=== PATIENT | female | born 1930 | race Asian ===

== ENCOUNTER 2020-11-03 16:44 | Inpatient (IN) | payer MEDICARE, OTHER ==
[~2020-11-03] VITALS: Ht 152.4 cm; Wt 34.9 kg
[2020-11-03] MEDS ORDERED: TEMAZEPAM 7.5 MG CAPSULE PO PRN (17:00)
[2020-11-03] MEDS ORDERED: MAGNESIUM HYDROXIDE 30 ML UDC PO PRN (17:00)
[2020-11-03] MEDS ORDERED: ACETAMINOPHEN 325 MG TABLET PO PRN (17:00)
[2020-11-03] MEDS ORDERED: LORAZEPAM 0.5 MG TABLET PO PRN (17:00)
[2020-11-03] MEDS ORDERED: MAG HYDROX/AL HYDROX/SIMETH 30 ML UDC PO PRN (17:00)
[2020-11-03] MEDS ORDERED: ATOR10TA PO (17:18)
[2020-11-03] MEDS ORDERED: CHOL200013 PO (17:18)
[2020-11-03] MEDS ORDERED: ROMO210S SQ (17:18)
[2020-11-03] MEDS ORDERED: LINA290C PO (17:18)
[2020-11-03] MEDS ORDERED: MEMA7CAP PO (17:18)
[2020-11-03] MEDS ORDERED: GABA-532 PO (17:18)
[2020-11-03] MEDS ORDERED: CALC500T53 PO (17:18)
[2020-11-03] MEDS ORDERED: ICOS1CAP PO (17:18)
[2020-11-03] MEDS ORDERED: NEBI5TAB8 PO (17:18)
[2020-11-03] MEDS ORDERED: MELO-107 PO (17:18)
[2020-11-03] MEDS ORDERED: OLME20TA13 PO (17:18)
[2020-11-03] MEDS ORDERED: AMLO5TAB4 PO (17:18)
[2020-11-03] MEDS ORDERED: MONT10TA22 PO (17:18)
[2020-11-03] MEDS ORDERED: ASCO500C17 PO (17:18)
--- NOTE | 2020-11-03 19:30 | NUR ---
GPS ADMISSION NOTE, RECEIVED PATIENT FROM [facility] [place] . PATIENT ARRIVED ON THIS UNIT AT 1800 VIA STRETCHER WITH 2 EMT ESCORTS. PATIENT ADMITTED ON A 5150 HOLD FOR DTS AND GD. PER HOLD PATIENT IS ALERT AND ORIENTED X 2, IS CONFUSED, AND UNABLE TO RESPOND TO PROMPTS. PATIENT OVERDOSED ON MEDICATION AT HOME AND WAS IN THE HOSPITAL FOR 10 DAYS. PATIENT IS UNABLE TO PROVIDE A VIABLE PLAN FOR SELF CARE AT THIS TIME. THE 5150 WAS REVIEWED AND THE DOCUMENTATION IN THE 5150 HOLD APPEARS TO REFLECT THE PRESENTATION OF THE PATIENT. UPON FACE TO FACE ASSESSMENT PATIENT IS NOTED TO BEING DEPRESSED, DISHEVELED, DISORGANIZED, CONFUSED, COOPERATIVE, AND NEEDS REDIRECTION. PATIENT IS CURRENTLY LYING IN BED AWAKE, HAS NO S/S OR COMPLAINTS OF PAIN. PATIENT IS DISPLAYING NO S/S OF APPARENT DISTRESS. PATIENT BREATHING IS UNLABORED WITH EQUAL RISE AND FALL OF THE CHEST. PATIENT IS ALERT AND ORIENTATED X 1 ON ROOM AIR. PATIENT ASSISTED WITH TURING AND REPOSITIONING Q2HR AND PRN FOR COMFORT AND CIRCULATION. PATIENT HAS NO NEEDS AT THIS TIME. PATIENT DENIES SUICIDE IDEATIONS AND HOMICIDAL IDEATIONS AT THIS TIME. PATIENT REFUSED TO SIGNS ANY PAPER WORK DUE TO HER CONFUSION. PATIENT ADVISED OF HER HOLD AND PATIENT RIGHTS BOOKLET GIVEN. PATIENT IS UNDER THE PSYCHIATRIC CARE OF DR. BILL AND THE MEDICAL CARE OF DR LEGGETT. PATIENT BELONGINGS WERE INVENTORIED AND CHECKED FOR CONTRABAND. ALL CONTRABAND REMOVED AND STORED IN PATIENT HALLWAY LOCKER. PATIENT ADVANCED DIRECTIVES PREFERENCE, IMMUNIZATIONS QUESTIONER, NECESSARY PAPERWORK COMPLETED. PATIENT WOULD ONLY ALLOW A BLESSING SKIN ASSESSMENT. PATIENT ORIENTATED TO ROOM, FLOOR, AND STAFF WITH ALL QUESTIONS ANSWERED. PATIENT EDUCATED ON THE USE OF THE CALL LIGHT. PATIENT BED SIDE RAILS ARE UP X 2 FOR SAFETY. PATIENT BED IS LOCKED, LOW AND I WILL CONTINUE TO MONITOR THIS PATIENT Q 15 MIN WITH THE HELP OF STAFF TO MAINTAIN SAFETY.
[2020-11-03 19:35] VITALS: BP 101/64
[2020-11-03] MEDS ORDERED: Z GUARD REMEDY 2 OZ OINT TP PRN (20:30)
[2020-11-03] MEDS ORDERED: BLOOD SUGAR DIAGNOSTIC 1 EACH STRIP IN ONE (21:00)
[2020-11-03] MEDS: METOPROLOL TARTRATE 25 MG TABLET PO SCH (21:00)
--- NOTE | 2020-11-03 21:18 | NUR ---
GPS RN NOTE, PATIENT REFUSED LOPRESSOR 25 MG PO Q12HR AT THIS TIME. OFFERED THREE TIMES AND STILL PATIENT REFUSED STATING," NO I JUST WON'T TO SLEEP ". EDUCATED PATIENT ON THE RISKS AND BENEFITS OF TAKING LOPRESSOR. WILL CONTINUE TO MONITOR THIS PATIENT WITH THE HELP OF STAFF.
--- NOTE | 2020-11-03 21:48 | NUR ---
GPS RN NOTE, PERFORMED ACCU CHECK ON PATIENT WITH A BLOOD SUGAR RESULT 107. NO INTERVENTION REQUIRED AT THIS TIME. WILL CONTINUE TO MONITOR THIS PATIENT WITH THE HELP OF STAFF.
[2020-11-04 07:24] LABS: ALBUMIN 2.9 g/dL (3.4-5.0); BILIRUBIN,TOTAL 0.6 mg/dL (0.2-1.0); CALCIUM, SERUM 8.3 mg/dL (8.5-10.1); CREATININE 0.8 mg/dL (0.6-1.3); POTASSIUM 3.7 mmol/L (3.5-5.1); TOTAL PROTEIN, SERUM 6.3 g/dL (6.4-8.2)
[2020-11-04 07:34] LABS: CHOLESTEROL 257 mg/dL (<200); HDL CHOLESTEROL 37 mg/dL (40-60); LDL 184 mg/dL (0-99); TRIGLYCERIDES 93 mg/dL (30-150)
[2020-11-04 08:00] VITALS: BP 118/70
[2020-11-04] MEDS ORDERED: ENSURE ENLIVE CHOC 237 ML CAN PO SCH (08:00)
--- NOTE | 2020-11-04 08:17 | NUR ---
WOUND CARE CONSULT: PT PRESENTS WITH SMALL SCAR AND DISCOLORATION TO RT HIP AREA, PRESENT ON ADMISSION. CURRENT HEDY SCORE IS 19. PT IS CONTINENT. WILL SEE PRN.
[2020-11-04] MEDS: MEMANTINE HCL 5 MG TABLET PO SCH ×2 (08:32→16:57)
[2020-11-04] MEDS: ATORVASTATIN 10 MG TABLET PO SCH (08:32)
[2020-11-04] MEDS: ASCORBIC ACID 500 MG TABLET PO SCH (08:33)
[2020-11-04] MEDS: AMLODIPINE BESYLATE 5 MG TABLET PO SCH (08:33)
[2020-11-04] MEDS: METOPROLOL TARTRATE 25 MG TABLET PO SCH ×2 (08:33→21:16)
[2020-11-04] MEDS: MONTELUKAST SODIUM (10MG) 10 MG TABLET PO SCH (08:33)
[2020-11-04] MEDS: LOSARTAN POTASSIUM 50 MG TABLET PO SCH (08:34)
[2020-11-04] MEDS: MELOXICAM 7.5 MG TABLET PO SCH (08:34)
[2020-11-04] MEDS: CALCIUM CARBONATE (1250) 500 MG TABLET PO SCH (08:34)
[2020-11-04] MEDS ORDERED: Medication Not On Formulary EA (Icosapent Ethyl (Vascepa) 1 GM) PO SCH (09:00)
[2020-11-04] MEDS ORDERED: Medication Not On Formulary EA (Olmesartan Medoxomil (Benicar) 20 MG) PO SCH (09:00)
[2020-11-04] MEDS ORDERED: Medication Not On Formulary EA (Nebivolol Hcl (Bystolic) 5 MG) PO SCH (09:00)
[2020-11-04] MEDS ORDERED: Medication Not On Formulary EA (Memantine HCl (Namenda Xr) 7 MG) PO SCH (09:00)
[2020-11-04] MEDS ORDERED: GABAPENTIN 100 MG CAPSULE PO SCH (09:00)
[2020-11-04] MEDS: ENSURE ENLIVE CHOC 237 ML CAN PO SCH ×2 (13:45→16:58)
[2020-11-04] MEDS: SERTRALINE HCL 25 MG TABLET PO SCH (14:45)
--- NOTE | 2020-11-04 15:03 | NUR ---
Point of contact: SW contacted pts caregiver, Karley Singh ([phone]) for assistance with completing the mental health assessment due to pt being Lao speaking. Per caregiver, pt lives at a nursing home apartment and pts sister lives in the same building with her. Per caregiver, she helps pt with her activities of daily living. Per caregiver pt should return home upon discharge.
--- NOTE | 2020-11-04 15:05 | NUR ---
Initial discharge plan: Pt is currently living alone in a correction apartment located on [address] [place], [place] [id number]; [phone]. Per pt, she would like to return home upon discharge. Per caregiver, pt should return home upon discharge. SW will form a safe and proper discharge.
--- NOTE | 2020-11-04 19:30 | NUR ---
GPS RN NOTE, RECEIVED PATIENT AWAKE AND IN BED, NO S/S OR COMPLAINTS OF PAIN AT THIS TIME. PATIENT IS DISPLAYING NO S/S OF APPARENT DISTRESS AT THIS TIME. PATIENT BREATHING IS UNLABORED WITH EQUAL RISE AND FALL OF THE CHEST. PATIENT IS ALERT AND ORIENTED X 1 - 2 ON ROOM AIR WITH A SPO2 96%. PATIENT IS SELECTIVE WITH MEDICATIONS, CONFUSED, CALM, DEPRESSED, COOPERATIVE, AND NEEDS REDIRECTION. PATIENT DENIES SUICIDAL AND HOMICIDAL IDEATIONS AT THIS TIME BUT IS CONFUSED. PATIENT ASSISTED WITH TURNING AND REPOSITIONING Q2HR AND PRN FOR COMFORT AND CIRCULATION. PATIENT HAS NO NEEDS AT THIS TIME. PATIENT EDUCATED ON THE USE OF THE CALL LIGHT. PATIENT BED SIDE RAILS UP X 2 FOR SAFETY. PATIENT BED IS LOCKED, LOW, WITH BED ALARM ON. WILL CONTINUE TO MONITOR THIS PATIENT Q15 MINUTES WITH THE HELP OF STAFF TO MAINTAIN SAFETY.
[2020-11-04 20:00] VITALS: BP 127/73
[2020-11-05 08:00] VITALS: BP 119/68
[2020-11-05] MEDS: ASCORBIC ACID 500 MG TABLET PO SCH (08:52)
[2020-11-05] MEDS: MONTELUKAST SODIUM (10MG) 10 MG TABLET PO SCH (08:52)
[2020-11-05] MEDS: AMLODIPINE BESYLATE 5 MG TABLET PO SCH (08:53)
[2020-11-05] MEDS: MEMANTINE HCL 5 MG TABLET PO SCH ×2 (08:53→17:19)
[2020-11-05] MEDS: ATORVASTATIN 10 MG TABLET PO SCH (08:53)
[2020-11-05] MEDS: MELOXICAM 7.5 MG TABLET PO SCH (08:53)
[2020-11-05] MEDS: CALCIUM CARBONATE (1250) 500 MG TABLET PO SCH (08:53)
[2020-11-05] MEDS: LOSARTAN POTASSIUM 50 MG TABLET PO SCH (08:54)
[2020-11-05] MEDS: METOPROLOL TARTRATE 25 MG TABLET PO SCH ×2 (08:54→21:22)
[2020-11-05] MEDS: ENSURE ENLIVE CHOC 237 ML CAN PO SCH ×3 (08:55→17:19)
[2020-11-05] MEDS: SERTRALINE HCL 25 MG TABLET PO SCH (12:35)
[2020-11-05 16:00] VITALS: BP 141/72
[2020-11-05 20:00] VITALS: BP 119/72
[2020-11-05 20:16] VITALS: BP 119/72
[2020-11-05 21:15] VITALS: BP 116/69
--- NOTE | 2020-11-06 07:03 | NUR ---
RN NOTE PATIENT SLEPT WELL AT NIGHT, AMBULATORY WITH WALKER, STAND BY ASSIST. HAD PO FLUIDS & SNACK AT NIGHT, TOLERATED WELL. WILL ENDORSE TO AM RN.
[2020-11-06 08:00] VITALS: BP 127/70
[2020-11-06] MEDS: CALCIUM CARBONATE (1250) 500 MG TABLET PO SCH (09:05)
[2020-11-06] MEDS: MONTELUKAST SODIUM (10MG) 10 MG TABLET PO SCH (09:05)
[2020-11-06] MEDS: LOSARTAN POTASSIUM 50 MG TABLET PO SCH (09:05)
[2020-11-06] MEDS: METOPROLOL TARTRATE 25 MG TABLET PO SCH ×2 (09:06→21:00)
[2020-11-06] MEDS: ASCORBIC ACID 500 MG TABLET PO SCH (09:06)
[2020-11-06] MEDS: MELOXICAM 7.5 MG TABLET PO SCH (09:06)
[2020-11-06] MEDS: ATORVASTATIN 10 MG TABLET PO SCH (09:06)
[2020-11-06] MEDS: MEMANTINE HCL 5 MG TABLET PO SCH ×2 (09:06→17:50)
[2020-11-06] MEDS: AMLODIPINE BESYLATE 5 MG TABLET PO SCH (09:07)
[2020-11-06] MEDS: ENSURE ENLIVE CHOC 237 ML CAN PO SCH ×3 (09:08→17:51)
[2020-11-06] MEDS: SERTRALINE HCL 25 MG TABLET PO SCH (13:58)
--- NOTE | 2020-11-06 14:00 | NUR ---
patient sitting ion the floor next to door ,will continue to monitor for safety .
[2020-11-06 16:00] VITALS: BP 146/86
[2020-11-06 20:00] VITALS: BP 104/53
[2020-11-07 08:00] VITALS: BP 142/70
[2020-11-07] MEDS: AMLODIPINE BESYLATE 5 MG TABLET PO SCH (09:01)
[2020-11-07] MEDS: LOSARTAN POTASSIUM 50 MG TABLET PO SCH (09:01)
[2020-11-07] MEDS: MONTELUKAST SODIUM (10MG) 10 MG TABLET PO SCH (09:01)
[2020-11-07] MEDS: MEMANTINE HCL 5 MG TABLET PO SCH ×2 (09:02→17:08)
[2020-11-07] MEDS: CALCIUM CARBONATE (1250) 500 MG TABLET PO SCH (09:02)
[2020-11-07] MEDS: ASCORBIC ACID 500 MG TABLET PO SCH (09:02)
[2020-11-07] MEDS: ATORVASTATIN 10 MG TABLET PO SCH (09:02)
[2020-11-07] MEDS: METOPROLOL TARTRATE 25 MG TABLET PO SCH ×2 (09:03→21:13)
[2020-11-07] MEDS: MELOXICAM 7.5 MG TABLET PO SCH (09:03)
[2020-11-07] MEDS: ENSURE ENLIVE CHOC 237 ML CAN PO SCH ×3 (09:03→17:05)
[2020-11-07] MEDS: SERTRALINE HCL 25 MG TABLET PO SCH (12:31)
--- NOTE | 2020-11-07 12:55 | NUR ---
Facility contact: JOSE ALFREDO sent a referral to [facility] to fax # [phone].
[2020-11-07 16:24] VITALS: BP 115/68
[2020-11-08 08:00] VITALS: BP 120/66
[2020-11-08] MEDS: AMLODIPINE BESYLATE 5 MG TABLET PO SCH (09:00)
[2020-11-08] MEDS: METOPROLOL TARTRATE 25 MG TABLET PO SCH ×2 (09:00→21:08)
[2020-11-08] MEDS: LOSARTAN POTASSIUM 50 MG TABLET PO SCH (09:00)
[2020-11-08] MEDS: ENSURE ENLIVE CHOC 237 ML CAN PO SCH ×3 (09:14→16:45)
[2020-11-08] MEDS: MONTELUKAST SODIUM (10MG) 10 MG TABLET PO SCH (09:18)
[2020-11-08] MEDS: ATORVASTATIN 10 MG TABLET PO SCH (09:18)
[2020-11-08] MEDS: MEMANTINE HCL 5 MG TABLET PO SCH ×2 (09:18→16:47)
[2020-11-08] MEDS: CALCIUM CARBONATE (1250) 500 MG TABLET PO SCH (09:18)
[2020-11-08] MEDS: ASCORBIC ACID 500 MG TABLET PO SCH (09:18)
[2020-11-08] MEDS: MELOXICAM 7.5 MG TABLET PO SCH (09:19)
--- NOTE | 2020-11-08 09:42 | NUR ---
SNF Referral: JOSE ALFREDO faxed a referral to [facility] with attn to Admissions to the fax number: [phone].
[2020-11-08] MEDS: SERTRALINE HCL 25 MG TABLET PO SCH (12:35)
--- NOTE | 2020-11-08 14:00 | NUR ---
Probable cause hearing: Pts 5250 was upheld on the grounds of gravely disabled and danger to self.
[2020-11-08 16:00] VITALS: BP 109/71
[2020-11-08 20:00] VITALS: BP 99/67
[2020-11-08 22:00] VITALS: BP 119/78
[2020-11-09 09:16] VITALS: BP 112/69
[2020-11-09] MEDS: ENSURE ENLIVE CHOC 237 ML CAN PO SCH ×3 (09:31→16:54)
[2020-11-09] MEDS: MONTELUKAST SODIUM (10MG) 10 MG TABLET PO SCH (09:42)
[2020-11-09] MEDS: ATORVASTATIN 10 MG TABLET PO SCH (09:43)
[2020-11-09] MEDS: LOSARTAN POTASSIUM 50 MG TABLET PO SCH (09:43)
[2020-11-09] MEDS: MELOXICAM 7.5 MG TABLET PO SCH (09:43)
[2020-11-09] MEDS: ASCORBIC ACID 500 MG TABLET PO SCH (09:44)
[2020-11-09] MEDS: CALCIUM CARBONATE (1250) 500 MG TABLET PO SCH (09:44)
[2020-11-09] MEDS: METOPROLOL TARTRATE 25 MG TABLET PO SCH ×2 (09:44→20:38)
[2020-11-09] MEDS: AMLODIPINE BESYLATE 5 MG TABLET PO SCH (09:44)
[2020-11-09] MEDS: MEMANTINE HCL 5 MG TABLET PO SCH ×2 (09:51→16:55)
--- NOTE | 2020-11-09 11:15 | NUR ---
Facility contact: SW sent a referral to [facility] reports that they are unable to accept the pt at this time.
--- NOTE | 2020-11-09 11:41 | NUR ---
Point of contact: JOSE ALFREDO contacted pts caregiver, Karley Singh ([phone]) and informed her that pt was not accepted into to [facility]. JOSE ALFREDO reported that pt was accepted to [facility] and her discharge date is for Saturday11/11/2020. PerKarley she will discuss the case with the pts family and decide whether pt should go home or [facility]. JOSE ALFREDO will follow up with caregiver at a later time.
--- NOTE | 2020-11-09 12:11 | NUR ---
Point of contact: SW was contacted by pts caregiver, Karley Yip rFancisco ([phone]) who reported that pts family would like the SW to refer her to [facility]. SW reported they will not be able to take the pt because they are unlicensed to take psychiatric pts. SW reported the pt can either return home or be placed at [facility]. Per Karley, she will speak with the family and follow up with SW.
[2020-11-09] MEDS: SERTRALINE HCL 25 MG TABLET PO SCH (13:11)
--- NOTE | 2020-11-09 13:41 | NUR ---
Point of contact: SW was contacted by pts caregiver, Karley Singh ([phone]) who reported that the family would like SW to send a referral to [facility]. SW informed family that she will send the referral.
--- NOTE | 2020-11-09 13:42 | NUR ---
SNF referral: JOSE ALFREDO faxed referral to [facility] to fax # [phone]
[2020-11-09 16:37] VITALS: BP 119/72
[2020-11-09 20:41] VITALS: BP 112/64
[2020-11-10 08:00] VITALS: BP 131/84
[2020-11-10] MEDS: ENSURE ENLIVE CHOC 237 ML CAN PO SCH ×3 (08:05→16:25)
[2020-11-10] MEDS: ASCORBIC ACID 500 MG TABLET PO SCH (08:06)
[2020-11-10] MEDS: ATORVASTATIN 10 MG TABLET PO SCH (08:06)
[2020-11-10] MEDS: CALCIUM CARBONATE (1250) 500 MG TABLET PO SCH (08:06)
[2020-11-10] MEDS: LOSARTAN POTASSIUM 50 MG TABLET PO SCH (08:06)
[2020-11-10] MEDS: AMLODIPINE BESYLATE 5 MG TABLET PO SCH (08:06)
[2020-11-10] MEDS: METOPROLOL TARTRATE 25 MG TABLET PO SCH ×2 (08:07→21:00)
[2020-11-10] MEDS: MELOXICAM 7.5 MG TABLET PO SCH (08:07)
[2020-11-10] MEDS: MONTELUKAST SODIUM (10MG) 10 MG TABLET PO SCH (08:07)
[2020-11-10] MEDS: MEMANTINE HCL 5 MG TABLET PO SCH ×2 (08:07→16:55)
--- NOTE | 2020-11-10 09:03 | NUR ---
Facility contact: JOSE ALFREDO contacted Daisy from [facility] ([phone]) and informed her that pt will be discharged tomorrow at 1pm. Daisy informed JOSE ALFREDO that needs to call [facility] cloth brushing and sueding supervisor ([phone]) tomorrow prior to pts discharge to give a report. JOSE ALFREDO will follow up with cloth brushing and sueding supervisor tomorrow.
--- NOTE | 2020-11-10 09:09 | NUR ---
Point of contact: SW contacted pts caregiver, Karley Singh ([phone]) to inform her that pt was accepted into the [facility]. SW left a voicemail and will attempt to follow up at a later time.
[2020-11-10] MEDS: SERTRALINE HCL 25 MG TABLET PO SCH (13:32)
[2020-11-10 16:00] VITALS: BP 124/75
--- NOTE | 2020-11-11 06:30 | NUR ---
NURSES NOTES: COVID 19 ANTIGEN SWAB SENT TO LAB.
[2020-11-11 08:00] VITALS: BP 124/77
[2020-11-11] MEDS: MELOXICAM 7.5 MG TABLET PO SCH (08:29)
[2020-11-11] MEDS: AMLODIPINE BESYLATE 5 MG TABLET PO SCH (08:29)
[2020-11-11 08:30] VITALS: BP 124/77
[2020-11-11] MEDS: ATORVASTATIN 10 MG TABLET PO SCH (08:30)
[2020-11-11] MEDS: ASCORBIC ACID 500 MG TABLET PO SCH (08:30)
[2020-11-11] MEDS: MONTELUKAST SODIUM (10MG) 10 MG TABLET PO SCH (08:30)
[2020-11-11] MEDS: CALCIUM CARBONATE (1250) 500 MG TABLET PO SCH (08:30)
[2020-11-11] MEDS: LOSARTAN POTASSIUM 50 MG TABLET PO SCH (08:30)
[2020-11-11] MEDS: MEMANTINE HCL 5 MG TABLET PO SCH (08:30)
[2020-11-11] MEDS: METOPROLOL TARTRATE 25 MG TABLET PO SCH (08:30)
[2020-11-11] MEDS: ENSURE ENLIVE CHOC 237 ML CAN PO SCH ×2 (09:05→12:08)
--- NOTE | 2020-11-11 09:34 | NUR ---
Dr. Phillips gave an order to D/C hold and D/C to [place] and to follow up with psych and medical doctors. Psychiatrist reconciled meds to continue in the facility. Dr. Hidalgo made of the discharge and reconciled meds. Pt. without distress, denies suicidal and homicidal. Belongings ready and discharge papers ready.
[2020-11-11] MEDS: SERTRALINE HCL 25 MG TABLET PO SCH (12:07)
--- NOTE | 2020-11-11 12:43 | NUR ---
Pictures taken for the skin issues and pt. signed the discharge papers. Report given to Danny MONTANO over the facility.
--- NOTE | 2020-11-11 13:23 | NUR ---
Discharge: Pt was discharged to [facility] located on [address] [place] [address]; [phone]. Pt will be transported via [facility] @ 1PM. Pts caregiver Karley Singh ([phone]) was informed about the discharge. Upon discharge, pt denied suicidal/homicidal ideations and denied visual/auditory hallucinations. Pt appears to be confused and disoriented x1. Pt appears to be cooperative with a calm affect. Pt appears to be well groomed and appropriately dressed. Pt will be under the care of transitional studies instructor Dr. Orlando Fitch located on [address], [facility] [address]. Pts caregiver reports that she will schedule an transitional studies instructor appointment. Pt was referred to [facility] located on [address] [place] [id number]; [phone] for psychiatric services. [facility] has walk-in hours from 8:00 am-5:00pm Saturday- Saturday and no appointment is need. The choice of vendor form, and multidisciplinary exit care form were done, printed, signed, and given to the patient.
--- NOTE | 2020-11-11 13:53 | NUR ---
Pt. left the unit via ambulance and transported via a gurney. Left the unit without distress. V/S taken: BP 135/84, ME 85, RR 18, temp 98.2 and oxygen sat 97%.
== END 2020-11-11 13:54 | DRG 885 ==
LOC: GPS 16:44
PROVIDERS: ADMIT Psychiatry & Neurology Psychosomatic Medicine; ATTEND Internal Medicine
DX: F32.2 Major depressive disorder, single episode, severe without psychotic features (principal); F29 Unspecified psychosis not due to a substance or known physiological condition; F41.9 Anxiety disorder, unspecified; F03.90 Unspecified dementia, unspecified severity, without behavioral disturbance, psychotic disturbance, mood disturbance, and anxiety; Z73.6 Limitation of activities due to disability; R53.1 Weakness; R27.8 Other lack of coordination; I10 Essential (primary) hypertension; Z91.81 History of falling; E78.5 Hyperlipidemia, unspecified; G62.9 Polyneuropathy, unspecified; T42.4X1D Poisoning by benzodiazepines, accidental (unintentional), subsequent encounter
CPT/HCPCS: 36415; 80053-TC; 80061-TC; 82962-TC